=== PATIENT | male | born 1940 | race Caucasian/White ===

== ENCOUNTER 2017-02-11 05:57 | Inpatient (IN) ==
[2017-02-11] MEDS ORDERED: GLUCAGON 1 MG VIAL IM PRN (06:12)
[2017-02-11] MEDS ORDERED: DEXTROSE 50% 25 GM/50 ML VIAL IV PRN (06:12)
[2017-02-11] MEDS ORDERED: ACETAMINOPHEN 325 MG TABLET PO PRN (06:12)
[2017-02-11] MEDS ORDERED: ONDANSETRON 4 MG/2 ML VIAL IV PRN (06:12)
[2017-02-11] MEDS ORDERED: MORPHINE 2 MG/1 ML SYRINGE IV PRN (06:12)
--- NOTE | 2017-02-11 06:20 | Emergency Department Note ---
Billy Crabtree Brittany, am scribing for, and in the presence of, Avinash Chanel MD 06:09. Darío Crabtree Robert M, MD, personally performed the services described in this documentation, ascribed by Lynsey Cervantes in my presence, and it is both accurate and complete . Arrival - Arrival Chief Complaint: Shortness of Breath Stated Complaint: shortness of breath Mode of Arrival: Stretcher Limitations: No Limitations Source: Patient, RN Notes Reviewed - History of Present Illness HPI Narrative: Patient is a 76 y/o white male presenting to the ED by EMS from [facility] for further evaluation of SOB. Son in room reports that patient has complained of SOB for about 2-3 weeks, worsening this morning. He notes that patient was seen by his Sewing Machine Repairer Helper, Dr. Isaacs this past , February 09 for evaluation of this. He was seen at [facility] this morning with which he had a full lab work up performed and was given 80 mg Lasix. Patient denies any chest pain, neck pain, arm pain, N/V or diaphoresis. Patient usually takes a daily 20 mg Lasix and is on an Insulin pump. Son reports that patient is easy to "bottom out." Patient denies history of Renal Problems. His PCP is Dr. Linda Pena. Patient has no other complaint/pain in the ED at this time. PMHx significant for HTN, Pacemaker, CHF, CAD, Valvular Heart Dz, Vavle Replacement, Triple Bypass, Parkinson's Dz, IDDM, Dyslipidemia, Kidney Stones, Hepatitis, Anemia, Cardiac Catheterization, Carotid Endarterectomy, Cataract Surgery. Onset (ago): week(s) (2-3) Consistency: constant Allergies/Adverse Reactions: Allergies Allergy/AdvReac Type Severity Reaction Status Date / Time No Known Allergies Allergy Verified 02/11/17 06:10 Home Medications: Home Medications Medication Instructions Recorded Confirmed Type Aspirin [Ecotrin] 81 mg PO DAILY 04/28/16 05/11/16 History Carbidopa/Levodopa 25-100 [Sinemet 1 tablet PO TID 04/28/16 05/11/16 History 25-100] Furosemide Tab [Lasix Tab] 40 mg PO DAILY 04/28/16 05/11/16 History Insulin Lispro [HumaLOG] 0 unit SUBCUT DIRECTED 04/28/16 05/11/16 History Ranolazine [Ranexa] 500 mg PO BID 04/28/16 05/11/16 History Rosuvastatin [Crestor] 10 mg PO BEDTIME 04/28/16 05/11/16 History Carvedilol [Coreg] 3.125 mg PO BID 05/06/16 05/11/16 History Gabapentin 100 mg PO BEDTIME 05/06/16 05/11/16 History Linaclotide [Linzess] 145 mcg PO AC BREAKFAST 05/06/16 05/11/16 History Lisinopril/Hydrochlorothiazide 1 each PO DAILY 05/06/16 05/11/16 History [Lisinopril-Hctz 10-12.5 mg Tab] Multivitamin [Multivitamins] 1 each PO DAILY 05/06/16 05/11/16 History Review of System - Review of System 12 point system: reviewed and no additional remarkable complaints except as stated - Review of System Constitutional: Absent: chills, diaphoresis, fever Eyes: Absent: vision change Head/Ears/Nose/Throat: Absent: nasal drainage, sore throat Respiratory: Present: respiratory distress Cardiovascular: Absent: chest pain Gastrointestinal: Absent: abdominal pain, nausea, vomiting, diarrhea, constipation Genitourinary male: Absent: urgency, dysuria, frequency Musculoskeletal: Absent: arm pain, back pain, leg pain, neck pain Skin: Absent: rash Neurological: Absent: headache Psychiatric: Absent: anxiety, depression Medical,Surgical,& Family Hx - Medical History Cardio: History of: CHF, CAD, Hypertension, Pacemaker, Valvular Heart Disease, Cardiovascular Problems (triple bypass-2004, valve replacement-2007) No history of: Cardiac Dysrhythmia, [place] Neurology: History of: Parkinson's Disease No history of: Seizures, Vertigo HEENT: History of: 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, had surgery), Eye Problem ( glasses) No history of: Glaucoma Endocrine: History of: Diabetes Mellitus (IDDM), Dyslipidemia No history of: Thyroid Disorder Genitourinary: History of: Kidney Stones No history of: Prostate Problems Gastrointestinal: History of: Hepatitis (unknown type) No history of: Liver Problems Musculoskeletal: History of: Musculoskeletal Problems (chronic pain) Hematology: History of: Anemia No history of: Blood Transfusion Reaction Other: No history of: Anesthesia Reactions, Cancer - Surgical History Cardiac Surgeries: Sugical HX of: Cardiac Catheterization, Cardiac Surgery ( bypass 2007), Carotid Endarterectomy Thoracic Surgeries: Surgical HX of;: Kidney (Renal Surgery) (removal of stone) HEENT Surgeries: Surgical HX of: Carotid Endarterectomy, Eye Surgery (cataracts) Patient denies: Tonsilectomy & Adenoidectomy Abdominal Surgeries: Patient denies: Abdominal Surgery, Appendectomy, Hernia Repair Orthopedic Surgeries: Patient denies;: Orthopedic Surgery - Family History Family History: Reports;: Family Cancer (mother-stomach) - Social History Smoking Status: Never smoker Exam Vital Signs: Vital Signs Temperature 96.8 F L 02/11/17 05:57 Pulse Rate 92 H 02/11/17 05:57 Respiratory Rate 24 02/11/17 05:57 Blood Pressure 135/82 02/11/17 05:57 O2 Sat by Pulse Oximetry 97 02/11/17 05:57 - General General appearance: alert, in no apparent distress - Head Head exam: Present: atraumatic, normocephalic, normal inspection - Eye Eye exam: Present: normal appearance, PERRL, EOMI - ENT ENT exam: Present: mucous membranes moist. Absent: normal oropharynx (lips have a dusky appearance) - Neck Neck exam: Present: normal inspection, full ROM, trachea midline - Chest Chest inspection: Present: symmetric chest wall rise. Absent: normal inspection (healed scars consistent with prior surgical procedures) - Respiratory Respiratory exam: Present: rales (bilateral ), rhonchi (bilateral). Absent: normal lung sounds bilaterally - Cardiovascular Cardiovascular exam: Present: regular rate, normal rhythm, normal heart sounds. Absent: murmur, rubs, gallop - Abdominal Exam Abdominal exam: Present: soft, normal bowel sounds. Absent: distention, tenderness - Extremities Exam Extremities exam: Present: normal inspection - Back Exam Back exam: Present: normal inspection - Neurological Exam Neurological exam: Present: alert, oriented X3, CN II-XII intact. Absent: motor sensory deficit - Psychiatric Psychiatric exam: Present: normal affect, normal mood - Skin Skin exam: Present: warm, dry, other (dusky lips) Course - Consultations Consultation #1: Dr. Linda Pena will evaluate and admit the patient. Time: 06:19 Disposition Clinical Impression: Congestive heart failure, IDDM (insulin dependent diabetes mellitus) Case discussed with: patient, patient's family Disposition: Still a Patient Condition: Stable Time of Disposition: 06:19
--- NOTE | 2017-02-11 06:23 | EKG Report ---
Stationary ECG Study [facility] ER Test Date: 02/11/2017 6:05:05 AM Pat Name: RYAN LILLY Department: Room: Gender: M Content Creation Manager: : 1940 Requested by: Avinash Chanel Order Number: [id number] Reading MD: KRISTI LOMBARDO Intervals [place] Rate: 78 P: 175 MD: 211 QRS: 80 QRSD: 147 T: 51 QT: 454 QTc: 488 Interpretive Statements ELECTRONIC ATRIAL PACEMAKER INDETERMINATE AXIS RIGHT BUNDLE BRANCH BLOCK Electronically Signed On 02-12-17 12:50:40 CDT by KRISTI LOMBARDO [email or web address]
[2017-02-11] MEDS: INSULIN LISPRO 100 UNIT/ML SUBCUT SCH ×5 (08:13→20:41)
[2017-02-11] MEDS: DOCUSATE SODIUM 100 MG CAPSULE PO SCH ×2 (09:33→20:40)
[2017-02-11] MEDS: PANTOPRAZOLE 40 MG TABLET PO SCH (09:34)
[2017-02-11] MEDS: FUROSEMIDE 40 MG/4 ML VIAL IV SCH ×2 (09:34→20:40)
[2017-02-11] MEDS ORDERED: ALBUTEROL/IPRATROPIUM 3 ML NEB RESP TX PRN (12:45)
--- NOTE | 2017-02-11 12:50 | Cardiology Consult Note ---
History of Present Illness - Data of Consult Patient: known to practice within the last 3 years Consult date: 02/11/17 - Consult Narrative History of present illness: Cardiology consult. 76-year-old man transferred from [facility] with congestive heart failure. Patient has been short of breath and has exercise intolerance for at least 2 weeks. Last night became acutely short of breath and was in congestive heart failure. BNP level 558. EKG shows atrial pacing with right axis and right bundle branch block. Chest x-ray was done in [place] [facility]. This patient has a long complicated cardiac history. Previously followed by Dr. Hi who recently retired. Now being followed by Dr. Isaacs. Status post three-vessel CABG September 01, 2003 with VILLEDA graft to LAD, vein graft to the OM branch and vein graft distal right coronary. 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 by Dr. Montalvo May 04, 2011. There was Intra-Op injury to the VILLEDA graft due to dense adhesions and the VILLEDA was and reimplanted separately to the aorta. Status post dual-chamber pacemaker 2009. Pacemaker interrogated today shows 2 brief episodes of atrial fib that do not explain his symptoms. Status post bilateral carotid endarterectomies Status post redo right carotid endarterectomy August 2016 Status post redo left endarterectomy April 2015 in [facility]. Insulin dependent diabetic on insulin pump for the past 12 years. Hyperlipidemia on Crestor Lifetime non-smoker and nondrinker No history of peptic ulcer disease. Occasional GE reflux symptoms. Part of a heart attack age 79. Mother from stomach cancer age 85. The patient does have Parkinson's disease and takes carbidopa levodopa 3 times daily. He does not like to use a walker. Normal EGD May 06, 2016, and colonoscopy done May 2016 showed diverticulosis only. Chronic hypertension on lisinopril HCT 10/12.5 daily and Coreg 3.125 mg twice daily. No history of stroke. Echo Doppler done 02/09/2017 at the [facility] office ejection fraction 45% with grade 1 diastolic dysfunction, severely dilated left atrium, normally functioning bioprosthetic aortic valve with 28 motor peak gradient, mild 2+ MR, normal RV function, moderate TR PA pressure 40-45. Blood pressure 142/80. Pulse 76 and regular. O2 sat 96% on 2 L Bilateral carotid enterectomy scars with bilateral bruits. Regular rhythm with 2/6 systolic ejection murmur upper right sternal border. I cannot hear any AI. 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 aortic valve prosthesis for aortic stenosis April 2011 with intraoperative injury to the VILLEDA graft requiring reimplantation into the aorta Status post bilateral carotid endarterectomies 2 on each side Recent echo showed ejection fraction 45%, normally functioning bioprosthetic aortic valve with moderate TR PA pressure 40-45 and mild MR Chronic hypertension Longtime diabetic, on insulin pump for over 10 years PVD bilateral femoral bruits carotid bruits decreased distal foot pulses Lifetime non-smoker and nondrinker Status post dual-chamber pacemaker 2008 Hyperlipidemia Plan IV Lasix Duo nebs BMP in a.m. Cardiac cath Monday 7:30 AM disease progression suspected. Findings and plan discussed with patient and his son Jae and [id number] Jeannie. All questions answered. He agrees to proceed as a outline CC: Linda Pena, DO - Home Medications and Allergies Home Medications: Home Medications Medication Instructions Recorded Confirmed Type Aspirin [Ecotrin] 81 mg PO DAILY 04/28/16 02/11/17 History Carbidopa/Levodopa 25-100 [Sinemet 1 tablet PO TID 04/28/16 02/11/17 History 25-100] Furosemide Tab [Lasix Tab] 20 mg PO DAILY 04/28/16 02/11/17 History Insulin Lispro [HumaLOG] 0 unit SUBCUT DIRECTED 04/28/16 02/11/17 History Ranolazine [Ranexa] 500 mg PO BID 04/28/16 02/11/17 History Rosuvastatin [Crestor] 10 mg PO BEDTIME 04/28/16 02/11/17 History Carvedilol [Coreg] 3.125 mg PO BID 05/06/16 02/11/17 History Gabapentin 100 mg PO BEDTIME 05/06/16 02/11/17 History Linaclotide [Linzess] 290 mcg PO AC BREAKFAST 05/06/16 02/11/17 History Lisinopril/Hydrochlorothiazide 10 mg PO DAILY 05/06/16 02/11/17 History [Lisinopril-Hctz 10-12.5 mg Tab] Multivitamin [Multivitamins] 1 each PO DAILY 05/06/16 02/11/17 History Clopidogrel [Plavix] 75 mg PO DAILY 02/11/17 02/11/17 History Allergies/Adverse Reactions: Allergies Allergy/AdvReac Type Severity Reaction Status Date / Time No Known Allergies Allergy Verified 02/11/17 06:10 Medical,Surgical,& Family Hx - Medical History Cardio: History of: CHF, CAD, Hypertension, Pacemaker, Valvular Heart Disease, Cardiovascular Problems (triple bypass-2004, valve replacement-2007) No history of: Cardiac Dysrhythmia, [place] Neurology: History of: Cerebrovascular Accident, Parkinson's Disease, TIA No history of: Seizures, Vertigo HEENT: History of: 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, had surgery), Eye Problem ( glasses) No history of: Glaucoma Endocrine: History of: Diabetes Mellitus (IDDM), Dyslipidemia No history of: Thyroid Disorder Genitourinary: History of: Kidney Stones No history of: Prostate Problems Gastrointestinal: No history of: Hepatitis, Liver Problems Musculoskeletal: History of: Musculoskeletal Problems (chronic pain) Hematology: History of: Anemia No history of: Blood Transfusion Reaction Other: No history of: Anesthesia Reactions, Cancer - Surgical History Cardiac Surgeries: Sugical HX of: Cardiac Catheterization, Cardiac Surgery ( bypass 2007), Carotid Endarterectomy Patient Denies: Internal Defibrillator (pacemaker) Thoracic Surgeries: Surgical HX of;: Kidney (Renal Surgery) (removal of stone) HEENT Surgeries: Surgical HX of: Carotid Endarterectomy, Eye Surgery (cataracts) Patient denies: Tonsilectomy & Adenoidectomy Abdominal Surgeries: Surgical HX of: Colonoscopy, EGD Patient denies: Abdominal Surgery, Appendectomy, Hernia Repair Orthopedic Surgeries: Patient denies;: Orthopedic Surgery - Family History Family History: Reports;: Family Cancer (mother-stomach), Family Diabetes ( grandfather), Family Hypertension - Social History Smoking Status: Never smoker Frequency of Alcohol Use: None Type of Drug Use: None Physical Examination Vital Signs Temp Pulse Resp BP Pulse Ox 96.8 F L 92 H 24 135/82 97 02/11/17 05:57 02/11/17 05:57 02/11/17 05:57 02/11/17 05:57 02/11/17 05:57 Result/EKG - Labs Labs: Laboratory Results - last 24 hr 02/11/17 02/11/17 02/11/17 08:05 08:36 11:10 POC Glucose 178 H 327 H B-Natriuretic Peptide 558 H 02/11/17 12:13 POC Glucose 360 H B-Natriuretic Peptide
[2017-02-11] MEDS: ALBUTEROL/IPRATROPIUM 3 ML NEB RESP TX SCH ×2 (13:22→19:50)
--- NOTE | 2017-02-11 14:41 | Internal Med History&Physical ---
Assessment and Plan (1) Atherosclerotic cardiovascular disease Status: Chronic Current Visit: Yes (2) Hypertension Status: Chronic Current Visit: Yes Qualifiers: Hypertension type: essential hypertension Qualified Code(s): I10 - Essential (primary) hypertension (3) Congestive heart failure Status: Acute Current Visit: Yes (4) IDDM (insulin dependent diabetes mellitus) Problem details: uses an insulin pump Status: Chronic Current Visit: Yes History of Present Illness Chief complaint: worsening shortness of breath History of present illness: Mr. Flores is a 76 year old male with history of atherosclerotic disease to include carotid and coronary arteries, CABG, DM, HTN, pacemaker placement, Parkinson disease, peripheral neuropathy, history of kidney stones, who presented to ER with progressively worsening shortness of breath. Dr. Patricia was consulted to further evaluate. He will have cardiac cath on Monday. Home Medications Medication Instructions Recorded Confirmed Type Aspirin [Ecotrin] 81 mg PO DAILY 04/28/16 02/11/17 History Carbidopa/Levodopa 25-100 [Sinemet 1 tablet PO TID 04/28/16 02/11/17 History 25-100] Furosemide Tab [Lasix Tab] 20 mg PO DAILY 04/28/16 02/11/17 History Insulin Lispro [HumaLOG] 0 unit SUBCUT DIRECTED 04/28/16 02/11/17 History Ranolazine [Ranexa] 500 mg PO BID 04/28/16 02/11/17 History Rosuvastatin [Crestor] 10 mg PO BEDTIME 04/28/16 02/11/17 History Carvedilol [Coreg] 3.125 mg PO BID 05/06/16 02/11/17 History Gabapentin 100 mg PO BEDTIME 05/06/16 02/11/17 History Linaclotide [Linzess] 290 mcg PO AC BREAKFAST 05/06/16 02/11/17 History Lisinopril/Hydrochlorothiazide 10 mg PO DAILY 05/06/16 02/11/17 History [Lisinopril-Hctz 10-12.5 mg Tab] Multivitamin [Multivitamins] 1 each PO DAILY 05/06/16 02/11/17 History Clopidogrel [Plavix] 75 mg PO DAILY 02/11/17 02/11/17 History Allergies Allergy/AdvReac Type Severity Reaction Status Date / Time No Known Allergies Allergy Verified 02/11/17 06:10 Medical,Surgical,& Family Hx - Medical History Cardio: History of: CHF, CAD, Hypertension, Pacemaker, Valvular Heart Disease, Cardiovascular Problems (triple bypass-2004, valve replacement-2007) No history of: Cardiac Dysrhythmia, [place] Neurology: History of: Cerebrovascular Accident, Parkinson's Disease, TIA No history of: Seizures, Vertigo HEENT: History of: 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, had surgery), Eye Problem ( glasses) No history of: Glaucoma Endocrine: History of: Diabetes Mellitus (IDDM), Dyslipidemia No history of: Thyroid Disorder Genitourinary: History of: Kidney Stones No history of: Prostate Problems Gastrointestinal: No history of: Hepatitis, Liver Problems Musculoskeletal: History of: Musculoskeletal Problems (chronic pain) Hematology: History of: Anemia No history of: Blood Transfusion Reaction Other: No history of: Anesthesia Reactions, Cancer - Surgical History Cardiac Surgeries: Sugical HX of: Cardiac Catheterization, Cardiac Surgery ( bypass 2007), Carotid Endarterectomy Patient Denies: Internal Defibrillator (pacemaker) Thoracic Surgeries: Surgical HX of;: Kidney (Renal Surgery) (removal of stone) HEENT Surgeries: Surgical HX of: Carotid Endarterectomy, Eye Surgery (cataracts) Patient denies: Tonsilectomy & Adenoidectomy Abdominal Surgeries: Surgical HX of: Colonoscopy, EGD Patient denies: Abdominal Surgery, Appendectomy, Hernia Repair Orthopedic Surgeries: Patient denies;: Orthopedic Surgery - Family History Family History: Reports;: Family Cancer (mother-stomach), Family Diabetes ( grandfather), Family Hypertension - Social History Smoking Status: Never smoker Frequency of Alcohol Use: None Type of Drug Use: None Marital Status: Lives With:: Spouse Functional capacity: uses cane/walker - Constitutional Constitutional: Present: weakness - Cardiovascular Cardiovascular: Present: dyspnea, dyspnea on exertion - Respiratory Respiratory: Present: dyspnea on exertion Exam - Constitutional Vitals: Period Temp Pulse Resp BP Sys/Pickard Pulse Ox Last 24 Hr 96.8 F-97.3 F 68-92 18-24 126-155/70-82 94-100 General appearance: no acute distress - Head Head exam: Present: normocephalic - Eye Eye exam: Present: EOMI - Respiratory Respiratory exam: Present: clear to auscultation bilaterally. Absent: rhonchi, wheezes - Cardiovascular Cardiovascular exam: Present: regular rate and rhythm - GI/Abdominal GI/Abdominal exam: Present: soft. Absent: tenderness - Extremities Exam Extremities exam: Absent: edema - Neurological Exam Neurological exam: Present: alert - Psychiatric Psychiatric exam: Present: normal mood - Skin Skin exam: Present: warm, dry Results - Diagnostic Findings Procedure: Chest x-ray: report reviewed by me (CHF improved)
--- NOTE | 2017-02-11 15:14 | XRay Report ---
History: Shortness of breath Date: 02/11/2017 Study: Chest x-ray PA and lateral Comparison exam: Outside chest x-ray from earlier February 11, 2017 There is mild cardiomegaly. There is no mediastinal mass. There is mild aortic arch calcification. There has been previous median sternotomy and aortic valve replacement. The pulmonary vasculature is not engorged. There is mild bilateral pleural effusion. There is no confluent infiltrate. There are some probable scattered emphysematous changes. Osseous structures are unchanged. A left subclavian dual-lead transvenous pacemaker is stable in appearance. Impression: Resolving CHF compared to the outside examination performed earlier today at 4:39 AM. There is mild residual bilateral pleural effusion PROCEDURE INTERPRETED AT [facility] DEPARTMENT OF RADIOLOGY Final Report Signed by: Dr. Gissel Degroot
[2017-02-11] MEDS: CARBIDOPA/LEVODOPA 25-100 MG TABLET PO SCH ×2 (17:40→20:40)
[2017-02-11] MEDS: ROSUVASTATIN 10 MG TABLET PO SCH (20:40)
[2017-02-11] MEDS: RANOLAZINE 500 MG TABLET PO SCH (20:40)
[2017-02-11] MEDS: CARVEDILOL 3.125 MG TABLET PO SCH (20:41)
[2017-02-11] MEDS: GABAPENTIN 100 MG CAPSULE PO SCH (20:41)
[2017-02-12] MEDS: ALBUTEROL/IPRATROPIUM 3 ML NEB RESP TX SCH ×4 (00:14→20:23)
[2017-02-12 04:22] LABS: Basophils # 0.1 10*3/uL (0.0-0.2); Basophils % 0.7 % (0.0-0.8); Eosinophils # 0.5 10*3/uL (0.0-0.87); Eosinophils % 5.6 % (0.00-10.9); Hematocrit 37.2 VOL% (42.0-52.0); Hemoglobin 12.2 GM/DL (14.0-18.0); Immature Granulocytes % 0.4 %; Immature Granulocytes Absolute 0.04 #; Lymphocytes # 1.4 10*3/uL (1.4-4.0); Lymphocytes % 14.6 % (21.2-54.2); Mean Corpuscular HGB Conc 32.8 GM/DL (32-36); Mean Corpuscular Hemoglobin 30 PG (27-34); Mean Corpuscular Volume 91.9 FL (87-102); Mean Platelet Volume 12.1 FL (9.6-12.0); Monocytes # 0.8 10*3/uL (0.11-0.8); Monocytes % 8.8 % (1.7-12.7); Neutrophils # 6.6 10*3/uL (1.4-7.4); Neutrophils % 69.9 % (38.7-73.9); Platelet Count 232 T/CUMM (130-400); Red Blood Count 4.05 MC/CUMM (3.8-5.5); Red Cell Distribution Width 13.2 % (9.3-17.3); White Blood Count 9.4 T/CUMM (4-12)
[2017-02-12 04:57] LABS: Calcium 9.2 MG/DL (8.5-10.1); Osmolality,Calculated 293.8 MOS/KG (273-304)
[2017-02-12 05:17] LABS: Magnesium 2.3 MG/DL (1.8-2.4); Risk Ratio 2.65; VLDL CHOLESTEROL 10.6 MG/DL
[2017-02-12] MEDS: LINACLOTIDE 145 MCG CAPSULE PO SCH (07:53)
[2017-02-12] MEDS: INSULIN LISPRO 100 UNIT/ML SUBCUT SCH ×4 (08:07→20:23)
[2017-02-12] MEDS ORDERED: DIAZEPAM 5 MG TABLET PO ONE (09:42)
[2017-02-12] MEDS ORDERED: MAGNESIUM SULF RIDER 2 GM in PREMIX 1 EACH IV PRN (09:42)
[2017-02-12] MEDS ORDERED: POTASSIUM CHLORIDE RIDER 10 MEQ in PREMIX 1 EACH IV PRN (09:42)
--- NOTE | 2017-02-12 09:42 | History and Physical Update ---
Sedation H&P Update - History and Physical H&P was reviewed, the patient examined and there: are no changes in the patients condition since last H&P was completed. - Dictation Physical: refer to H&P completed by admitting physician - Physical Exam Mental Status: alert and oriented Heart: regular rate and rhythm Lung: clear to auscultation Abdomen: within normal limits Vitals: within normal limits - Sedation ASA Class: II Airway Assessment: Class II: Soft palate, uvula, fauces visible
[2017-02-12] MEDS: CARVEDILOL 3.125 MG TABLET PO SCH (10:02)
[2017-02-12] MEDS: LISINOPRIL/HCTZ 10-12.5 MG TABLET PO SCH (10:05)
[2017-02-12] MEDS: ASPIRIN EC 81 MG TABLET PO SCH (10:05)
[2017-02-12] MEDS: CARBIDOPA/LEVODOPA 25-100 MG TABLET PO SCH ×3 (10:05→20:23)
[2017-02-12] MEDS: RANOLAZINE 500 MG TABLET PO SCH ×2 (10:05→20:23)
[2017-02-12] MEDS: MULTIVITAMIN (CENTRUM) TABLET PO SCH (10:05)
[2017-02-12] MEDS: CLOPIDOGREL 75 MG TABLET PO SCH (10:05)
--- NOTE | 2017-02-12 10:05 | Cardiology Progress Note ---
Cardiology - PN: Subj Interval history: Cardiology note 76-year-old man admitted with congestive heart failure. Recent echo showed ejection fraction of 45% with normally functioning bioprosthetic aortic valve and moderate TR PA pressure 40-45 and mild MR. Blood pressure running a little high. 170/82 in the left arm by me Regular rhythm systolic ejection murmur upper right sternal border no AI heard Bilateral carotid bruits, no thrill Decreased breath sounds few rhonchi in the right base only Abdomen benign. 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 April 2011 with intraoperative injury to the VILLEDA graft requiring reimplantation into the aorta Chronic hypertension Longtime diabetic on insulin pump PVD with bilateral femoral bruits and decreased distal foot pulses Status post redo bilateral carotid endarterectomies Status post dual-chamber pacemaker 2008 Hyperlipidemia Lifetime non-smoker and nondrinker Recent echo in the office showed ejection fraction 45% with normally functioning bioprosthetic aortic valve prosthesis with moderate TR PA pressure 40-45 and mild MR Plan Cardiac cath 7:30 AM tomorrow Discussed again with patient and his son Raysa. All questions answered. See orders Exam (Progress Note) - Constitutional Vitals: Period Temp Pulse Resp BP Sys/Pickard Pulse Ox Last 24 Hr 96.7 F-98.5 F 67-91 18-21 126-198/69-87 92-99 Result/EKG - Labs CBC & BMP: 02/12/17 03:35 02/12/17 03:35 Labs: Laboratory Results - last 24 hr 02/11/17 02/11/17 02/11/17 11:10 12:13 15:09 WBC RBC Hgb Hct MCV MCH MCHC RDW Plt Count MPV Neut % (Auto) Lymph % (Auto) [place] % (Auto) Eos % (Auto) Baso % (Auto) Neut # (Auto) Lymph # (Auto) [place] # (Auto) Eos # (Auto) Baso # (Auto) Immature Gran % Nucleated RBC % Immature Gran # Nucleated RBCs # Sodium Potassium Chloride Carbon Dioxide Anion Gap BUN Creatinine GFR Calculation BUN/Creatinine Ratio Glucose POC Glucose 327 H 360 H 421 H Calculated Osmolality Calcium Magnesium Triglycerides Cholesterol LDL Cholesterol VLDL Cholesterol HDL Cholesterol Heart Disease Risk Ratio 02/11/17 02/11/17 02/12/17 18:29 20:41 03:35 WBC RBC Hgb Hct MCV MCH MCHC RDW Plt Count MPV Neut % (Auto) Lymph % (Auto) [place] % (Auto) Eos % (Auto) Baso % (Auto) Neut # (Auto) Lymph # (Auto) [place] # (Auto) Eos # (Auto) Baso # (Auto) Immature Gran % Nucleated RBC % Immature Gran # Nucleated RBCs # Sodium 144 Potassium 4.0 Chloride 102 Carbon Dioxide 36 H Anion Gap 10.0 BUN 25 H Creatinine 1.20 GFR Calculation 66 BUN/Creatinine Ratio 20.00 Glucose 165 H POC Glucose 291 H 260 H Calculated Osmolality 293.8 Calcium 9.2 Magnesium Triglycerides Cholesterol LDL Cholesterol VLDL Cholesterol HDL Cholesterol Heart Disease Risk Ratio 02/12/17 02/12/17 02/12/17 03:35 03:36 08:02 WBC 9.4 RBC 4.05 Hgb 12.2 L Hct 37.2 L MCV 91.9 MCH 30 MCHC 32.8 RDW 13.2 Plt Count 232 MPV 12.1 H Neut % (Auto) 69.9 Lymph % (Auto) 14.6 L [place] % (Auto) 8.8 Eos % (Auto) 5.6 Baso % (Auto) 0.7 Neut # (Auto) 6.6 Lymph # (Auto) 1.4 [place] # (Auto) 0.8 Eos # (Auto) 0.5 Baso # (Auto) 0.1 Immature Gran % 0.4 Nucleated RBC % 0.0 Immature Gran # 0.04 Nucleated RBCs # 0.00 Sodium Potassium Chloride Carbon Dioxide Anion Gap BUN Creatinine GFR Calculation BUN/Creatinine Ratio Glucose POC Glucose 157 H Calculated Osmolality Calcium Magnesium 2.3 Triglycerides 53 Cholesterol 143 LDL Cholesterol 80.0 VLDL Cholesterol 10.6 HDL Cholesterol 54 Heart Disease Risk Ratio 2.65
[2017-02-12] MEDS: FUROSEMIDE 40 MG/4 ML VIAL IV SCH ×2 (10:06→20:23)
[2017-02-12] MEDS: PANTOPRAZOLE 40 MG TABLET PO SCH (10:10)
[2017-02-12] MEDS: DOCUSATE SODIUM 100 MG CAPSULE PO SCH ×2 (10:10→20:23)
--- NOTE | 2017-02-12 11:32 | Pulmonology Consult Note ---
History of Present Illness Chief complaint: S OB. CHONG. CHF. HD History of present illness: Mr. Flores is a 76 year old white male whom I been asked to see in pulmonary consultation. This patient was seen along with his son. The patient had a recent history of shortness of breath dyspnea on exertion orthopnea. Denies any cardiac angina. He says he recently saw his doctor and I thought it was a viral illness and he seemed to get better and then he became worse suddenly and he was brought to the hospital. The patient has had no cough no sputum no hemoptysis per The remainder of the review of systems is negative. Allergies. None Home medicines. See below Hospital medicines. See below Past history. History of heart disease. History of ischemic cardiomyopathy. Three-vessel coronary artery bypass grafts in 2003. Aortic valve prosthesis placed April 2011 for severe aortic stenosis. There was a intraoperative injury to the VILLEDA graft and this required reimplantation into the 8 order. High blood pressure. Diabetes mellitus requiring insulin pump. Peripheral vascular disease with bilateral femoral bruits and decreased distal pulses. Bilateral carotid endarterectomies that both required redo surgeries. Hyperlipidemia. Dual-chamber pacemaker placed 2008. A recent echocardiogram showing ejection fraction of 45%. Bioprosthetic aortic valve prosthesis was functioning normally. There was mild mitral regurgitation. Pulmonary artery pressures of 40-45 mm of marked. Appendectomy. Hernia repair Family history. His mother had cancer of the stomach his grandfather had diabetes and several people in the family of high high blood pressure. Social history. Patient does not use alcohol. He has never smoked. He is . Chest x-ray. 02/11/2017. My interpretation. Cardiomegaly. Pulmonary arteries are normal. Benign calcifications both hilar areas sternal wires. Mediastinum is normal. Aortic knob is calcified. There is very mild interstitial edema in the perihilar and basilar areas. There appears to be a small amount of pleural fluid in both costophrenic angles. This is confirmed on lateral film where a posterior collection of fluid can be seen bilaterally. Cardiac pacer wires appear to be in place Lab. CBC is normal. Electrolytes are normal. Creatinine is 1.20 with BUN of 25. Glucoses are under fair control natruretic peptide was elevated at 558. Microbiology. No reports peer Physical exam. Vital signs. See below Psychiatric. Oriented 3 Cranial nerves are intact with decreased hearing acuity bilaterally. Long track motor function was intact. Gait was not tested and sensory exam was not done. Face. Symmetrical. No swelling of lips or tongue. Neck. Symmetrical. No masses. Thyroid was not palpated. No meningismus. Chest is symmetrical and clear with normal expiration. I heard no wheeze stridor or rales. No chest wall tenderness. Heart lateral PMI and no gallop Abdomen. Nontender. Positive bowel sounds Lower extremities. No edema. Venous exam neck upper and lower extremities are normal. Arterial exam. See Dr. Willis Del Real note. Musculoskeletal no gross abnormalities cervical thoracic and lumbar spine. Age- appropriate changes. The remainder of the physical exam is normal. Impression. 1. Shortness of breath dyspnea on exertion and orthopnea secondary to mild pulmonary edema which is secondary to heart disease 2. Arteriosclerotic heart disease. Past history of coronary artery bypass grafts. 3. History of aortic stenosis which necessitated aortic valve replacement 4. Cardiac arrhythmia requiring pacemaker 5. Carotid artery disease and peripheral artery disease in the lower extremities 6. High blood per 7. No lung disease 8. See past history Plan. 1. Dr. Willis Del Real and I have discussed the case and coordinated our care. He will proceed with cardiac catheterization tomorrow which I agree with. 2. I talked to the patient and his son. I do not think he has any lung problems and they do not think he does either. 3. I will sign off. Please reconsult me whenever needed. Home Medications Medication Instructions Recorded Confirmed Type Aspirin [Ecotrin] 81 mg PO DAILY 04/28/16 02/11/17 History Carbidopa/Levodopa 25-100 [Sinemet 1 tablet PO TID 04/28/16 02/11/17 History 25-100] Furosemide Tab [Lasix Tab] 20 mg PO DAILY 04/28/16 02/11/17 History Insulin Lispro [HumaLOG] 0 unit SUBCUT DIRECTED 04/28/16 02/11/17 History Ranolazine [Ranexa] 500 mg PO BID 04/28/16 02/11/17 History Rosuvastatin [Crestor] 10 mg PO BEDTIME 04/28/16 02/11/17 History Carvedilol [Coreg] 3.125 mg PO BID 05/06/16 02/11/17 History Gabapentin 100 mg PO BEDTIME 05/06/16 02/11/17 History Linaclotide [Linzess] 290 mcg PO AC BREAKFAST 05/06/16 02/11/17 History Lisinopril/Hydrochlorothiazide 10 mg PO DAILY 05/06/16 02/11/17 History [Lisinopril-Hctz 10-12.5 mg Tab] Multivitamin [Multivitamins] 1 each PO DAILY 05/06/16 02/11/17 History Clopidogrel [Plavix] 75 mg PO DAILY 02/11/17 02/11/17 History Allergies Allergy/AdvReac Type Severity Reaction Status Date / Time No Known Allergies Allergy Verified 02/11/17 06:10 Exam ([facility]) H&P - Constitutional Vitals: Period Temp Pulse Resp BP Sys/Pickard Pulse Ox Last 24 Hr 96.7 F-98.5 F 67-91 18-21 126-198/69-87 92-99 Medical,Surgical,& Family Hx - Medical History Cardio: History of: CHF, CAD, Hypertension, Pacemaker, Valvular Heart Disease, Cardiovascular Problems (triple bypass-2004, valve replacement-2007) No history of: Cardiac Dysrhythmia, [place] Neurology: History of: Cerebrovascular Accident, Parkinson's Disease, TIA No history of: Seizures, Vertigo HEENT: History of: 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, had surgery), Eye Problem ( glasses) No history of: Glaucoma Endocrine: History of: Diabetes Mellitus (IDDM), Dyslipidemia No history of: Thyroid Disorder Genitourinary: History of: Kidney Stones No history of: Prostate Problems Gastrointestinal: No history of: Hepatitis, Liver Problems Musculoskeletal: History of: Musculoskeletal Problems (chronic pain) Hematology: History of: Anemia No history of: Blood Transfusion Reaction Other: No history of: Anesthesia Reactions, Cancer - Surgical History Cardiac Surgeries: Sugical HX of: Cardiac Catheterization, Cardiac Surgery ( bypass 2007), Carotid Endarterectomy Patient Denies: Internal Defibrillator (pacemaker) Thoracic Surgeries: Surgical HX of;: Kidney (Renal Surgery) (removal of stone) HEENT Surgeries: Surgical HX of: Carotid Endarterectomy, Eye Surgery (cataracts) Patient denies: Tonsilectomy & Adenoidectomy Abdominal Surgeries: Surgical HX of: Colonoscopy, EGD Patient denies: Abdominal Surgery, Appendectomy, Hernia Repair Orthopedic Surgeries: Patient denies;: Orthopedic Surgery - Family History Family History: Reports;: Family Cancer (mother-stomach), Family Diabetes ( grandfather), Family Hypertension - Social History Smoking Status: Never smoker Frequency of Alcohol Use: None Type of Drug Use: None Results - Labs CBC & BMP: 02/12/17 03:35 02/12/17 03:35
--- NOTE | 2017-02-12 12:56 | Internal Med Progress Note ---
Assessment and Plan (1) Atherosclerotic cardiovascular disease Status: Chronic Current Visit: Yes (2) Hypertension Status: Chronic Current Visit: Yes Qualifiers: Hypertension type: essential hypertension Qualified Code(s): I10 - Essential (primary) hypertension (3) Congestive heart failure Status: Acute Current Visit: Yes (4) IDDM (insulin dependent diabetes mellitus) Problem details: uses an insulin pump Status: Chronic Current Visit: Yes Internal Medicine - PN: Subj Interval history: Mr. Flores is a 76 year old male with history of atherosclerotic disease to include carotid and coronary arteries, CABG, DM, HTN, pacemaker placement, Parkinson disease, peripheral neuropathy, history of kidney stones, who presented to ER with progressively worsening shortness of breath. Dr. Patricia was consulted to further evaluate. He will have cardiac cath on Monday. He reports feeling better today. Awaiting cardiac cath in the morning. Exam (Progress Note) - Constitutional Vitals: Period Temp Pulse Resp BP Sys/Pickard Pulse Ox Last 24 Hr 96.7 F-98.5 F 67-77 18-21 133-198/69-87 92-99 Exam: - Respiratory Respiratory exam: Present: clear to auscultation bilaterally - Cardiovascular Cardiovascular exam: Present: regular rate and rhythm - GI/Abdominal GI/Abdominal exam: Present: soft. Absent: tenderness - Extremities Exam Extremities exam: Absent: edema - Neurological Exam Neurological exam: Present: alert - Psychiatric Psychiatric exam: Present: normal mood - Skin Skin exam: Present: warm, dry Results - Labs CBC & BMP: 02/12/17 03:35 02/12/17 03:35
[2017-02-12] MEDS: ROSUVASTATIN 10 MG TABLET PO SCH (20:22)
[2017-02-12] MEDS: GABAPENTIN 100 MG CAPSULE PO SCH (20:23)
[2017-02-12] MEDS: CARVEDILOL 6.25 MG TABLET PO SCH (20:23)
[2017-02-13] MEDS: ALBUTEROL/IPRATROPIUM 3 ML NEB RESP TX SCH ×4 (00:46→19:34)
[2017-02-13 05:01] LABS: Basophils # 0.1 10*3/uL (0.0-0.2); Eosinophils # 0.8 10*3/uL (0.0-0.87); Eosinophils % 10.3 % (0.00-10.9); Hematocrit 39.3 VOL% (42.0-52.0); Hemoglobin 13.1 GM/DL (14.0-18.0); Immature Granulocytes % 0.2 %; Immature Granulocytes Absolute 0.02 #; Lymphocytes # 1.5 10*3/uL (1.4-4.0); Lymphocytes % 18.2 % (21.2-54.2); Mean Corpuscular HGB Conc 33.3 GM/DL (32-36); Mean Corpuscular Hemoglobin 30 PG (27-34); Mean Corpuscular Volume 89.7 FL (87-102); Monocytes # 0.8 10*3/uL (0.11-0.8); Neutrophils # 4.9 10*3/uL (1.4-7.4); Neutrophils % 60.3 % (38.7-73.9); Platelet Count 246 T/CUMM (130-400); Red Blood Count 4.38 MC/CUMM (3.8-5.5); Red Cell Distribution Width 13.2 % (9.3-17.3); White Blood Count 8.1 T/CUMM (4-12)
[2017-02-13 05:28] LABS: INR 1.1; PT Patient Result 11.8 SECS
[2017-02-13 05:30] LABS: Calcium 8.8 MG/DL (8.5-10.1); Osmolality,Calculated 288.1 MOS/KG (273-304); Potassium 3.5 MMOL/L (3.5-5.1)
[2017-02-13] MEDS ORDERED: DIAZEPAM 5 MG TABLET PO ONE (06:00)
[2017-02-13] MEDS: RANOLAZINE 500 MG TABLET PO SCH ×4 (06:55→20:33)
[2017-02-13] MEDS: CLOPIDOGREL 75 MG TABLET PO SCH ×3 (06:55→09:41)
[2017-02-13] MEDS: CARVEDILOL 6.25 MG TABLET PO SCH ×4 (06:55→20:36)
[2017-02-13] MEDS: ASPIRIN EC 81 MG TABLET PO SCH ×3 (06:55→09:40)
[2017-02-13] MEDS ORDERED: LIDOCAINE 1% 20 ML VIAL ONE ×2 (07:03→07:19)
[2017-02-13] MEDS ORDERED: HEPARIN/NACL 0.9% 2 UNITS/ML 0 ML IV ONE (07:03)
[2017-02-13] MEDS ORDERED: HYDROmorphone 2 MG/1 ML VIAL ONE (07:19)
[2017-02-13] MEDS ORDERED: HEPARIN/NACL 0.9% 2 UNITS/ML 1,000 ML IV ONE (07:19)
[2017-02-13] MEDS ORDERED: MIDAZOLAM 2 MG/2 ML VIAL ONE (07:20)
--- NOTE | 2017-02-13 08:38 | Cardiology Progress Note ---
Cardiology - PN: Subj Interval history: Cardiac catheterization procedure note #1 left heart catheterization #2 selective coronary angiography #3 vein graft angiography #4 VILLEDA angiography #5 aortogram #6 left ventriculargram was not performed Visipaque was used for the procedure Description of procedure Following sterile preparation draping of the right groin local anesthesia was achieved by infiltration with 1% Xylocaine. Using a Cook needle the right femoral artery was cannulated and a #6 sheath was inserted. A 6 Nauruan left Ashtyn catheter was introduced and advanced to the liza aortic pressure was recorded. The left main was cannulated and left coronary angiography was performed in several WAN and TURKMEN projections. The catheter was exchanged for a 6 Nauruan right Amplatz catheter and right coronary angiography was performed in the TURKMEN projection only. The vein grafts were then cannulated and vein graft angiography was performed in PA projection only. The catheter change for a 6 Nauruan pigtail catheter and an aortogram was then performed in the TURKMEN projection using 36 cc of contrast. Catheter change for a 6 Nauruan right Amplatz catheter and the free VILLEDA graft was then cannulated and angiography was performed in WAN and TURKMEN projections. The catheter and sheath were then removed and the femoral arteriotomy site was sealed with a minx closure device with prompt cessation of bleeding and prompt return of femoral foot pulses. No complications ensued. The patient was transferred back to telemetry in stable condition. Hemodynamic data Aortic pressure 167/68 mean 105 Selective coronary angiography Left main trunk is patent bifurcates. The LAD has a 99% stenosis after the septal and diagonal branch with competitive flow. It provides good left-to- right collaterals to the distal right coronary. The diagonal branch is small and has a 80% ostial stenosis. The proximal circumflex is widely patent. The distal circumflex is subtotally occluded. The dominant right coronary is occluded proximally. The saphenous vein graft to the OM branch is occluded. The saphenous vein graft to right coronary is occluded. The free VILLEDA graft to the LAD is widely patent. The distal LAD has mild disease only and provides collaterals to distal circumflex and distal right coronary branches. Aortogram The bioprosthetic aortic valve is well seated. There is trivial AI. The aortic root is mildly dilated. Left ventriculography No attempt was made to cross the bioprosthetic valve. LV gram was not performed. Conclusions Aortic pressure 167/68 mean 105 Left main-patent LAD-99% mid with competitive flow First diagonal-80% ostial, small vessel Circumflex-widely patent proximally. Subtotal occlusion distally. RCA-occluded proximally SVG to RCA-occluded at origin SVG to OM-occluded at origin Free VILLEDA to LAD-widely patent with good runoff. It provides collaterals to distal circumflex and distal right coronary Disposition The patient status post three-vessel CABG August 2003 with a VILLEDA graft to the LAD, vein graft to OM branch and vein graft to distal right coronary. The patient is status post bioprosthetic aortic valve replacement in April 2011. Due to dense adhesion there was intraoperative injury to the VILLEDA and it had to be reimplanted into the aorta. Today's cath shows both vein grafts to be occluded. The free VILLEDA graft to LAD remains widely patent and provides good collaterals to the distal right coronary and faint collaterals to distal circumflex. Continued medical therapy recommended. Cine pictures were reviewed the patient's sons Jae and Korey. He will remain on normal saline hydration and a BMP rechecked in the morning Exam (Progress Note) - Constitutional Vitals: Period Temp Pulse Resp BP Sys/Pickard Pulse Ox Last 24 Hr 97 F-97.8 F 63-74 16-20 148-161/64-86 92-99 Result/EKG - Labs CBC & BMP: 02/13/17 04:20 02/13/17 04:20 Labs: Laboratory Results - last 24 hr 02/12/17 02/12/17 02/12/17 11:47 16:36 19:57 WBC RBC Hgb Hct MCV MCH MCHC RDW Plt Count MPV Neut % (Auto) Lymph % (Auto) Stephens % (Auto) Eos % (Auto) Baso % (Auto) Neut # (Auto) Lymph # (Auto) Stephens # (Auto) Eos # (Auto) Baso # (Auto) Immature Gran % Nucleated RBC % Immature Gran # Nucleated RBCs # INR PT Patient/Control Mix Sodium Potassium Chloride Carbon Dioxide Anion Gap BUN Creatinine GFR Calculation BUN/Creatinine Ratio Glucose POC Glucose 306 H 210 H 215 H Calculated Osmolality Calcium 02/13/17 02/13/17 02/13/17 04:20 04:20 04:20 WBC 8.1 RBC 4.38 Hgb 13.1 L Hct 39.3 L MCV 89.7 MCH 30 MCHC 33.3 RDW 13.2 Plt Count 246 MPV 12.0 Neut % (Auto) 60.3 Lymph % (Auto) 18.2 L Stephens % (Auto) 10.0 Eos % (Auto) 10.3 Baso % (Auto) 1.0 H Neut # (Auto) 4.9 Lymph # (Auto) 1.5 Stephens # (Auto) 0.8 Eos # (Auto) 0.8 Baso # (Auto) 0.1 Immature Gran % 0.2 Nucleated RBC % 0.0 Immature Gran # 0.02 Nucleated RBCs # 0.00 INR 1.1 PT Patient/Control Mix 11.8 Sodium 142 Potassium 3.5 Chloride 99 Carbon Dioxide 36 H Anion Gap 10.5 BUN 24 H Creatinine 1.30 GFR Calculation 60 BUN/Creatinine Ratio 18.00 Glucose 138 H POC Glucose Calculated Osmolality 288.1 Calcium 8.8 02/13/17 06:47 WBC RBC Hgb Hct MCV MCH MCHC RDW Plt Count MPV Neut % (Auto) Lymph % (Auto) Stephens % (Auto) Eos % (Auto) Baso % (Auto) Neut # (Auto) Lymph # (Auto) Stephens # (Auto) Eos # (Auto) Baso # (Auto) Immature Gran % Nucleated RBC % Immature Gran # Nucleated RBCs # INR PT Patient/Control Mix Sodium Potassium Chloride Carbon Dioxide Anion Gap BUN Creatinine GFR Calculation BUN/Creatinine Ratio Glucose POC Glucose 144 H Calculated Osmolality Calcium
[2017-02-13] MEDS ORDERED: ZALEPLON 5 MG CAPSULE PO PRN (08:39)
[2017-02-13] MEDS: LINACLOTIDE 145 MCG CAPSULE PO SCH (09:16)
[2017-02-13] MEDS: LISINOPRIL/HCTZ 10-12.5 MG TABLET PO SCH (09:17)
[2017-02-13] MEDS: MULTIVITAMIN (CENTRUM) TABLET PO SCH (09:17)
[2017-02-13] MEDS: CARBIDOPA/LEVODOPA 25-100 MG TABLET PO SCH ×3 (09:17→20:33)
[2017-02-13] MEDS: DOCUSATE SODIUM 100 MG CAPSULE PO SCH ×2 (09:17→20:33)
[2017-02-13] MEDS: PANTOPRAZOLE 40 MG TABLET PO SCH (09:17)
[2017-02-13] MEDS: FUROSEMIDE 40 MG/4 ML VIAL IV SCH ×2 (09:18→20:33)
[2017-02-13] MEDS: INSULIN LISPRO 100 UNIT/ML SUBCUT SCH (09:45)
[2017-02-13] MEDS: SODIUM CHLORIDE 0.9% 1,000 ML IV SCH ×2 (09:46→21:35)
--- NOTE | 2017-02-13 10:38 | Physician Query Form ---
CLICK EDIT DOCUMENT TO SELECT QUERY ANSWER --> OK --> SIGN Tania Chanel RN, CCDS Certified Clinical Yarn Cleaner W) [phone] (f) [phone] [email or web address] PROVIDERS: Make your selection(s) from the choices in EACH section by typing an "x" and enter comments in the comment section. Please use your independent medical judgment in providing your response. This request does not imply that any particular answer is desired or expected. CLINICAL INDICATORS: (Providers should not edit this section) The medical record indicates that the patient was admitted with acute congestive heart failure, "Recent echo in the office showed ejection fraction 45 %" and the patient was treated with IV Lasix. Please provide further specificity regarding CHF. TYPE: ( ) Systolic (HFrEF - heart failure with reduced systolic function/EF) ( ) Diastolic (HFpEF - heart failure with preserved systolic function/EF) ( ) Combined Systolic/Diastolic ( ) Other, please specify: ( ) Clinically unable to determine ( ) The patient does NOT have CHF COMMENTS: PLEASE ALSO DOCUMENT RESPONSE IN PROGRESS NOTES AND/OR DISCHARGE SUMMARY Use of terms such as suspected, likely, or probable (associated with a specific diagnosis that is being evaluated, monitored, or treated as if it exists) are acceptable and can be restated in the discharge summary if not ruled out. MTDD
--- NOTE | 2017-02-13 14:37 | Internal Med Progress Note ---
Assessment and Plan (1) Congestive heart failure Status: Acute Assessment and plan: Recurrent congestive heart failure and ischemic cardiomyopathy, : Status post pacemaker 2009, status post bilateral carotid endarterectomies. .cath done today. Follow recommendations of the plater supervisor Current Visit: Yes (2) Atherosclerotic cardiovascular disease Status: Chronic Current Visit: Yes (3) Hypertension Status: Chronic Assessment and plan: Continue antihypertensive Current Visit: Yes Qualifiers: Hypertension type: essential hypertension Qualified Code(s): I10 - Essential (primary) hypertension (4) IDDM (insulin dependent diabetes mellitus) Problem details: uses an insulin pump Status: Chronic Current Visit: Yes Internal Medicine - PN: Subj Interval history: Patient seen and examined at the telemetry floor, patient is sitting up in the bed having lunch. His son is sitting at the bedside. This morning had cardiac catheterization done, tolerated the procedure well. No overnight events reported by the nurse. Patient does not give any complaints of chest pain, shortness of breath, cough or pain at the site of procedure. Exam (Progress Note) - Constitutional Vitals: Period Temp Pulse Resp BP Sys/Pickard Pulse Ox Last 24 Hr 96.7 F-97.8 F 63-74 16-20 96-160/51-86 92-99 Exam: GENERAL APPEARANCE: alert and oriented, pleasant, in no acute distress, HEENT: normal. EYES: extraocular movement intact (EOMI), conjunctiva clear, normal. NECK/THYROID: neck supple, full range of motion, no cervical lymphadenopathy, no thyromegaly. HEART: regular rate and rhythm, + murmurs,. LUNGS: clear to auscultation bilaterally, no wheezes, rales, rhonchi. ABDOMEN: soft, nontender, nondistended, no organomegaly , bowel sounds present. EXTREMITIES: no edema. NEUROLOGIC: alert and oriented, cranial nerves 2-12 grossly intact, Results - Labs CBC & BMP: 02/13/17 04:20 02/13/17 04:20 Lab Results: I have reviewed the past 24 hour labs - Impressions Reviewed catheterization report from today Specialty Discharge - Follow Up or Referrals
[2017-02-13] MEDS: GABAPENTIN 100 MG CAPSULE PO SCH (20:33)
[2017-02-13] MEDS: ROSUVASTATIN 10 MG TABLET PO SCH (20:33)
[2017-02-14] MEDS: ALBUTEROL/IPRATROPIUM 3 ML NEB RESP TX SCH ×2 (00:03→07:13)
[2017-02-14 05:02] LABS: Basophils # 0.1 10*3/uL (0.0-0.2); Basophils % 0.6 % (0.0-0.8); Eosinophils # 0.7 10*3/uL (0.0-0.87); Eosinophils % 8.1 % (0.00-10.9); Hematocrit 33.6 VOL% (42.0-52.0); Hemoglobin 11.1 GM/DL (14.0-18.0); Immature Granulocytes % 0.4 %; Immature Granulocytes Absolute 0.03 #; Lymphocytes # 1.1 10*3/uL (1.4-4.0); Lymphocytes % 13.5 % (21.2-54.2); Mean Corpuscular Hemoglobin 30 PG (27-34); Mean Corpuscular Volume 91.1 FL (87-102); Mean Platelet Volume 12.2 FL (9.6-12.0); Monocytes # 0.7 10*3/uL (0.11-0.8); Monocytes % 9.1 % (1.7-12.7); Neutrophils # 5.5 10*3/uL (1.4-7.4); Neutrophils % 68.3 % (38.7-73.9); Platelet Count 198 T/CUMM (130-400); Red Blood Count 3.69 MC/CUMM (3.8-5.5); Red Cell Distribution Width 13.3 % (9.3-17.3); White Blood Count 8.1 T/CUMM (4-12)
[2017-02-14 05:34] LABS: Calcium 8.1 MG/DL (8.5-10.1); Osmolality,Calculated 297.3 MOS/KG (273-304); Potassium 3.6 MMOL/L (3.5-5.1)
[2017-02-14] MEDS: LINACLOTIDE 145 MCG CAPSULE PO SCH (07:35)
[2017-02-14] MEDS: CLOPIDOGREL 75 MG TABLET PO SCH (08:45)
[2017-02-14] MEDS: FUROSEMIDE 40 MG/4 ML VIAL IV SCH (08:46)
[2017-02-14] MEDS: PANTOPRAZOLE 40 MG TABLET PO SCH (08:46)
[2017-02-14] MEDS: CARVEDILOL 6.25 MG TABLET PO SCH (08:46)
[2017-02-14] MEDS: MULTIVITAMIN (CENTRUM) TABLET PO SCH (08:46)
[2017-02-14] MEDS: ASPIRIN EC 81 MG TABLET PO SCH (08:46)
[2017-02-14] MEDS: LISINOPRIL/HCTZ 10-12.5 MG TABLET PO SCH (08:46)
[2017-02-14] MEDS: RANOLAZINE 500 MG TABLET PO SCH (08:46)
[2017-02-14] MEDS: DOCUSATE SODIUM 100 MG CAPSULE PO SCH (08:46)
[2017-02-14] MEDS: CARBIDOPA/LEVODOPA 25-100 MG TABLET PO SCH (08:53)
--- NOTE | 2017-02-14 11:24 | Discharge Summary ---
<Singh Meneses - Last Filed: 02/15/17 14:30> Hospital Course - Hospital Course Hospital Course: 76 year old male admitted from ER with progressive SOB, had exercise intolerance since 2 weeks. Found to be in congestive heart failure. BNP level 558. pt is with history of atherosclerotic disease s/p CABG X3,s/p aortic valve prosthesis, s/p pacemaker placement, pvd,Parkinson disease, DM on insulin pump , HTN, Hyperlipidemia, Cardiology consult was done, cardiac catheterization was done on 02/13/2017. Found to have, 2 vein grafts occluded. free VILLEDA graft to LAD patent, along with collaterals. Medications were adjusted. Patient condition improved during the hospital stay. Pulmonology consult was done, respiratory etiology was ruled out. Diagnosis - Discharge Diagnosis (1) Congestive heart failure Status: Acute (2) Atherosclerotic cardiovascular disease Status: Chronic (3) Hypertension Status: Chronic (4) IDDM (insulin dependent diabetes mellitus) Status: Chronic Specialty Discharge - Follow Up or Referrals Follow up with: Linda Pena DO [Primary Care Provider] - 02/23/17 12:45 pm (PLEASE ENQUIRE FROM PT, IF IS THE PCP?,) Rusty Isaacs MD [Physician] - 02/21/17 10:00 am Discharge Plan - Discharge Data Disposition: Disch To Home/Self Care Condition at Discharge: Stable Discharge Diet: heart healthy, low salt diet Activity: resume usual activities as tolerated Hygiene: no restrictions - Discharge Medications Continue Ranolazine [Ranexa] 500 mg PO BID Carbidopa/Levodopa 25-100 [Sinemet 25-100] 1 tablet PO TID Furosemide Tab [Lasix Tab] 40 mg PO DAILY Rosuvastatin [Crestor] 20 mg PO BEDTIME Aspirin [Ecotrin] 81 mg PO DAILY Insulin Lispro [HumaLOG] 0 unit SUBCUT DIRECTED Lisinopril/Hydrochlorothiazide [Lisinopril-Hctz 10-12.5 mg Tab] 10 mg PO DAILY Linaclotide [Linzess] 290 mcg PO AC BREAKFAST Carvedilol [Coreg] 6.25 mg PO BID Multivitamin [Multivitamins] 1 each PO DAILY Gabapentin 100 mg PO BEDTIME Clopidogrel [Plavix] 75 mg PO DAILY - Follow Up or Referral Follow Up: Linda Pena DO [Primary Care Provider] - 02/23/17 12:45 pm (PLEASE ENQUIRE FROM PT, IF IS THE PCP?,) Rusty Isaacs MD [Physician] - 02/21/17 10:00 am - Forms/Instructions Instructions: Coronary Artery Disease (GEN), Left Heart Catheterization (DC) Exam - Constitutional Exam: GENERAL APPEARANCE: alert and oriented, pleasant, in no acute distress, HEENT: normal. EYES: extraocular movement intact (EOMI), conjunctiva clear, normal. NECK/THYROID: neck supple, full range of motion, no cervical lymphadenopathy, no thyromegaly. HEART: regular rate and rhythm, (pacemaker), + murmurs,. LUNGS: clear to auscultation bilaterally, no wheezes, rales, rhonchi. ABDOMEN: soft, nontender, nondistended, no organomegaly , bowel sounds present. EXTREMITIES: no edema. NEUROLOGIC: alert and oriented, cranial nerves 2-12 grossly intact, DS: Provider Date of admission: 02/11/17 06:16 Primary care physician: Linda Pena DO Attending physician on admission: Linda Pena DO Consults: 02/11/17 06:12 Consult to Case Mgmt/Social Srvs [CONS] Routine Reason for Case Mgmt/Social Srvs: Discharge Planning 02/11/17 07:52 Consult to Diabetes [facility], Educator [CONS] Routine Reason for Conservation Planner: Restart Insulin Pump Consult to Dietitian [CONS] Routine Reason for Dietitian: Dietary Consult 02/11/17 11:31 Consult to Physician [CONS] Routine Comment: Consulting Provider: Artur Hopkins Consult to Specialist Group: Pulmonology Person Notified: Dr Hopkins Date Notified: 02/11/17 Time Notified: 13:30 Consult Notification Comment: states will see patient in am. 02/11/17 11:32 Consult to Physician [CONS] Routine Comment: Consulting Provider: Cardiology - [facility] 02/13/17 08:39 Consult to Cardiac Rehabilitation [CONS] Routine Reason for Cardiac Rehabilitation: Risk Factor Modification Discharging clinician: Singh Meneses MD <Linda Pena - Last Filed: 02/16/17 18:52> Diagnosis - Discharge Diagnosis (1) Atherosclerotic cardiovascular disease Status: Chronic (2) Hypertension Status: Chronic (3) Congestive heart failure Status: Acute (4) IDDM (insulin dependent diabetes mellitus) Status: Chronic
--- NOTE | 2017-02-14 11:28 | Cardiology Progress Note ---
Cardiology - PN: Subj Interval history: He is feeling better. Ambulated around his room, without issues. Diuresed well. Atrial paced rhythm on telemetry. Blood pressure is fairly well- controlled, with occasional borderline hypo-tension, with occasional mild elevated pressures. No orthostatic issues. Shortness of breath resolves. Exam (Progress Note) - Constitutional Vitals: Period Temp Pulse Resp BP Sys/Pickard Pulse Ox Last 24 Hr 96.7 F-98.0 F 60-96 16-20 96-161/51-83 91-99 General appearance: normal weight, no acute distress - Head Head exam: Present: normal inspection, normocephalic - Eye Eye exam: Absent: conjunctival injection, scleral icterus Pupils: Absent: dilated - ENT ENT exam: Present: normal external ear exam - Neck Neck exam: Present: normal inspection - Respiratory Respiratory exam: Present: clear to auscultation bilaterally. Absent: wheezes - Cardiovascular Cardiovascular exam: Present: regular rate and rhythm - GI/Abdominal GI/Abdominal exam: Present: normal bowel sounds. Absent: distended - Extremities Exam Extremities exam: Present: normal inspection, normal capillary refill. Absent: edema - Neurological Exam Neurological exam: Present: alert, oriented X3 - Psychiatric Psychiatric exam: Present: normal affect, normal mood - Skin Skin exam: Present: normal color, warm. Absent: cyanosis Result/EKG - Labs CBC & BMP: 02/14/17 04:24 02/14/17 04:24 Lab Results: I have reviewed the past 24 hour labs Labs: Laboratory Results - last 24 hr 02/13/17 02/13/17 02/13/17 11:17 16:14 20:35 WBC RBC Hgb Hct MCV MCH MCHC RDW Plt Count MPV Neut % (Auto) Lymph % (Auto) Stephens % (Auto) Eos % (Auto) Baso % (Auto) Neut # (Auto) Lymph # (Auto) Stephens # (Auto) Eos # (Auto) Baso # (Auto) Immature Gran % Nucleated RBC % Immature Gran # Nucleated RBCs # Sodium Potassium Chloride Carbon Dioxide Anion Gap BUN Creatinine GFR Calculation BUN/Creatinine Ratio Glucose POC Glucose 169 H 191 H 198 H Calculated Osmolality Calcium Magnesium 02/14/17 02/14/17 02/14/17 02:44 04:24 04:24 WBC 8.1 RBC 3.69 L Hgb 11.1 L D Hct 33.6 L MCV 91.1 MCH 30 MCHC 33.0 RDW 13.3 Plt Count 198 MPV 12.2 H Neut % (Auto) 68.3 Lymph % (Auto) 13.5 L Stephens % (Auto) 9.1 Eos % (Auto) 8.1 Baso % (Auto) 0.6 Neut # (Auto) 5.5 Lymph # (Auto) 1.1 L Stephens # (Auto) 0.7 Eos # (Auto) 0.7 Baso # (Auto) 0.1 Immature Gran % 0.4 Nucleated RBC % 0.0 Immature Gran # 0.03 Nucleated RBCs # 0.00 Sodium 141 Potassium 3.6 Chloride 100 Carbon Dioxide 32 Anion Gap 12.6 BUN 24 H Creatinine 1.30 GFR Calculation 60 BUN/Creatinine Ratio 18.00 Glucose 333 H POC Glucose 363 H Calculated Osmolality 297.3 Calcium 8.1 L Magnesium 2.0 02/14/17 07:43 WBC RBC Hgb Hct MCV MCH MCHC RDW Plt Count MPV Neut % (Auto) Lymph % (Auto) Stephens % (Auto) Eos % (Auto) Baso % (Auto) Neut # (Auto) Lymph # (Auto) Stephens # (Auto) Eos # (Auto) Baso # (Auto) Immature Gran % Nucleated RBC % Immature Gran # Nucleated RBCs # Sodium Potassium Chloride Carbon Dioxide Anion Gap BUN Creatinine GFR Calculation BUN/Creatinine Ratio Glucose POC Glucose 339 H Calculated Osmolality Calcium Magnesium - EKG EKG results: interpreted by me Specialty Discharge - Follow Up or Referrals Follow up with: Linda Pena DO [Primary Care Provider] - 1 Week (PLEASE ENQUIRE FROM PT, IF IS THE PCP?,) Daniel Patricia MD [Physician] - 2 Weeks
[2017-02-14] MEDS: SODIUM CHLORIDE 0.9% 1,000 ML IV SCH (12:00)
[2017-02-14 12:05] VITALS: BP 112/52
[2017-02-14] MEDS ORDERED: ROSUVASTATIN 10 MG TABLET PO SCH (21:00)
[2017-02-15] MEDS ORDERED: FUROSEMIDE 40 MG TABLET PO SCH (09:00)
== END 2017-02-14 12:56 | disposition home or self-care (01) | DRG 287 ==
LOC: EDUNIT# → EDBD → N.ED 05:57 → N.EDINP 06:16 → N.TELES 06:51
PROVIDERS: ADMIT Internal Medicine; ATTEND Internal Medicine

== ENCOUNTER 2018-02-21 23:48 | Inpatient (IN) ==
[2018-03-01 16:27] VITALS: BP 115/59
== END 2018-03-01 18:09 | disposition swing bed (61) | DRG 280 ==
LOC: EDSEX → EDUNIT# → EDBD → N.ED 23:48 → N.EDINP 02-22 01:34 → N.CC 02-22 02:15 → N.TELES 02-25 21:26
PROVIDERS: ADMIT Internal Medicine; ATTEND Internal Medicine